=== PATIENT | male | born 1995 | race Caucasian/White ===

== ENCOUNTER 2019-01-08 12:59 | Day surgery (SDC) | payer OTHER ==
[2019-01-08 14:36] LABS: ADD MAN DIFF? NO
[2019-01-08 14:38] LABS: BASOPHILS % 0.8 % (0.0-2.0); EOSINOPHILS % 0.6 % (0.0-7.0); HEMATOCRIT 44.2 % (42.0-52.0); HEMOGLOBIN 14.4 g/dl (14.0-18.0); LYMPHOCYTES % 37.5 % (15.0-51.0); MEAN CORPUSCULAR HEMOGLOBIN 29.4 pg (29.0-33.0); MEAN CORPUSCULAR HGB CONC 32.6 g/dl (32.0-37.0); MEAN CORPUSCULAR VOLUME 90.4 fl (82.0-101.0); MEAN PLATELET VOLUME 10.2 fl (7.4-10.4); MONOCYTE # 0.4 10^3/ul (0.3-0.9); MONOCYTES % 8.4 % (0.0-11.0); NEUTROPHIL # 2.8 10^3/ul (1.6-7.5); NEUTROPHILS % 52.5 % (39.0-77.0); PLATELET COUNT 194 10^3/UL (140-415); RED BLOOD COUNT 4.89 10^6/ul (4.70-6.10)
[2019-01-08 14:38] LABS: WHITE BLOOD COUNT 5.3 10^3/ul (4.8-10.8)
[2019-01-08 14:58] LABS: INR 0.95; PROTIME 12.8 Sec (11.9-14.9)
[2019-01-08 14:59] LABS: PARTIAL THROMBOPLASTIN TIME 30.3 Sec (23.0-35.0)
[2019-01-08 15:01] LABS: ANION GAP 11 (5-13); BLOOD UREA NITROGEN 10 mg/dl (7-20); CALCIUM 9.6 mg/dl (8.4-10.2); CARBON DIOXIDE 26 mmol/L (21-31); CHLORIDE 106 mmol/L (97-110); CREATININE 0.69 mg/dl (0.61-1.24); Estimated GFR > 60 mL/min (>60); GLUCOSE 101 mg/dl (70-220); SODIUM 143 mmol/L (135-144)
[2019-01-08] MEDS ORDERED: LACTATED RINGER'S 1,000 ML IV* (15:30)
[2019-01-08] MEDS ORDERED: CEFAZOLIN 2 GM/50 ML (PMX) 50 ML IVPB (15:30)
[2019-01-08] MEDS ORDERED: CEFAZOLIN 1 GM INJ (17:10)
[2019-01-08] MEDS ORDERED: ROPIVACAINE 0.5 % 30 ML VIAL (17:10)
[2019-01-08] MEDS ORDERED: FENTAnyl 50 MCG/ML VIAL (17:10)
[2019-01-08] MEDS ORDERED: MIDAZOLAM 1 MG/ML 2 ML INJ (17:10)
[2019-01-08] MEDS ORDERED: PROPOFOL 20 ML (17:10)
[2019-01-08] MEDS ORDERED: ROCURONIUM 50 MG INJ (17:10)
[2019-01-08] MEDS ORDERED: EPHEDrine 50 MG INJ (17:29)
[2019-01-08] MEDS ORDERED: EPINEPHrine 0.1 MG/ML SYG (17:29)
[2019-01-08] MEDS ORDERED: DIPHENHYDRAMINE 50 MG INJ IV (17:30)
[2019-01-08] MEDS ORDERED: ONDANSETRON 4 MG INJ IV (17:30)
[2019-01-08] MEDS ORDERED: HYDROmorphONE 1 MG/5 ML IV SYRINGE IV ×3 (17:30)
[2019-01-08] MEDS ORDERED: FENTAnyl 50 MCG/ML VIAL IV ×3 (17:30)
[2019-01-08] MEDS ORDERED: METOCLOPRAMIDE 10 MG INJ IV (17:30)
[2019-01-08] MEDS ORDERED: OXYCODONE/ACETAMINOPHEN (5/325) TAB PO ×2 (17:30)
[2019-01-08] MEDS ORDERED: MEPERIDINE 25 MG INJ IV (17:30)
[2019-01-08] MEDS: POLYMYXIN/BACITRACIN 1L IRRIG (17:32)
[2019-01-08] MEDS ORDERED: ONDANSETRON 4 MG INJ (18:04)
[2019-01-08] MEDS ORDERED: DEXAMETHASONE 4 MG/ML 5 ML INJ (18:04)
[2019-01-08] MEDS ORDERED: KETOROLAC 30 MG INJ (18:04)
[2019-01-08] MEDS ORDERED: METOCLOPRAMIDE 10 MG INJ (18:04)
== END 2019-01-08 19:55 | disposition home or self-care (01) ==
LOC: SDS 12:59
DX: S62.336D Displaced fracture of neck of fifth metacarpal bone, right hand, subsequent encounter for fracture with routine healing (principal); S62.334D Displaced fracture of neck of fourth metacarpal bone, right hand, subsequent encounter for fracture with routine healing; X58.XXXD Exposure to other specified factors, subsequent encounter
CPT/HCPCS: 26615; 71045; 73130-RT; 80048; 85025; 85610; 85730; 93005

== ENCOUNTER 2019-03-20 14:34 | Day surgery (SDC) | payer OTHER ==
[~2019-03-20 14:34] MED LIST: LACTATED RINGER'S 1,000 ML IV
[2019-03-20] MEDS ORDERED: FENTAnyl 50 MCG/ML VIAL IV ×3 (16:00)
[2019-03-20] MEDS ORDERED: DIPHENHYDRAMINE 50 MG INJ IV (16:00)
[2019-03-20] MEDS ORDERED: OXYCODONE/ACETAMINOPHEN (5/325) TAB PO (16:00)
[2019-03-20] MEDS ORDERED: ALBUTEROL 0.083% (NEB) 2.5 MG/3 ML AMP HHN (16:00)
[2019-03-20] MEDS ORDERED: HYDROmorphONE 1 MG/5 ML IV SYRINGE IV ×3 (16:00)
[2019-03-20] MEDS ORDERED: ONDANSETRON 4 MG INJ IV (16:00)
[2019-03-20] MEDS ORDERED: METOCLOPRAMIDE 10 MG INJ IV (16:00)
[2019-03-20] MEDS ORDERED: ROPIVACAINE 0.5 % 30 ML VIAL (17:03)
[2019-03-20] MEDS ORDERED: MIDAZOLAM 1 MG/ML 2 ML INJ (17:04)
[2019-03-20] MEDS: CEFAZOLIN 2 GM/50 ML (PMX) 50 ML IVPB (17:20)
[2019-03-20] MEDS ORDERED: SUCCINYLCHOLINE CHLORIDE 100 MG/5 ML SYG IV (18:01)
[2019-03-20] MEDS ORDERED: PROPOFOL 20 ML (18:01)
[2019-03-20] MEDS ORDERED: CEFAZOLIN 1 GM INJ (18:01)
[2019-03-20] MEDS ORDERED: LIDOCAINE 100 MG SYRINGE (18:01)
[2019-03-20] MEDS: MEPERIDINE 25 MG INJ IV (18:07)
== END 2019-03-20 19:50 | disposition home or self-care (01) ==
LOC: SDS 14:34
DX: Z47.2 Encounter for removal of internal fixation device (principal)
CPT/HCPCS: 26320; 73130-RT